=== PATIENT | female | born 1950 | race Caucasian/White ===

== ENCOUNTER 2017-03-19 08:39 | Emergency (ER) | payer BC, MEDICARE ==
[~2017-03-19] VITALS: Ht 157.5 cm; Wt 47.0 kg
[~2017-03-19 08:39] MED LIST: GLUCTAB PO; HYDR12.57 PO; LISI20 PO; METO50 PO; SIMV20TA PO
[2017-03-19 08:45] VITALS: BP 174/85; PULSE 99; RESP 16; TEMP 98.2; O2SAT 96
[2017-03-19 08:55] VITALS: BP 174/85; PULSE 99; RESP 16; TEMP 98.2; O2SAT 96
[2017-03-19] MEDS ORDERED: HYDR12.57 PO (09:01)
[2017-03-19] MEDS ORDERED: LISI-515 PO (09:01)
[2017-03-19] MEDS ORDERED: METO50TA PO (09:01)
[2017-03-19] MEDS ORDERED: SIMV20TA PO (09:01)
[2017-03-19] MEDS ORDERED: METF500T PO (09:01)
--- NOTE | 2017-03-19 09:34 | PD ---
HPI . Back pain Chief Complaint: Back/ Neck Pain or Injury Time Seen by Provider: 09:10 Travel History International Travel<30 days: No Contact w/Intl Traveler<30days: No Traveled to known affect area: No History of Present Illness HPI Patient presents with a chief complaint of back pain. She points to her right buttock. She states she fell approximately 2 feet off of a ladder right buttock approximately a week ago. She states that she has continued to have an achy pain in the right buttock which she rates 9/10. She states that her pain is improved with ibuprofen and heat and a topical analgesic. She states that she discussed her UA with her primary care physician who ordered an outpatient x -ray. That was to be done today. However, she canceled the appointment for the outpatient x-ray and came here instead stating that she just can't wait another 2 or 3 days to find out what's going on with her back. She was concerned that there would be a delay from the time that the x-ray was done until the time that the results were known and treatment was initiated. She states that there is no radiation of the pain. She does not have any concerning neurological symptoms such as leg weakness or incontinence. The pain is localized to the right buttock. PFSH Past Medical History High Cholesterol: Yes Diabetes: Yes Patient Takes Glucophage: Yes Diminished Hearing: No GERD: Yes Hypertension: Yes Tetanus Vaccination: Unknown ?: Not Menopausal: Yes Social History Alcohol Use: No Tobacco Use: No Substance Use: No Allergies-Medications (Allergen,Severity, Reaction): Coded Allergies: No Known Allergies (Unverified Adverse Reaction, Unknown, 03/19/17) Reported Meds & Prescriptions Reported Meds & Active Scripts Active Reported Simvastatin 20 Mg Tab 20 Mg PO DAILY Metoprolol Tartrate 50 Mg Tab 50 Mg PO DAILY Metformin (Metformin HCl) 500 Mg Tab 500 Mg PO BIDPC Lisinopril 20 Mg Tab 20 Mg PO BID Hydrochlorothiazide 12.5 Mg Cap 12.5 Mg PO DAILY Review of Systems Except as stated in HPI: all other systems reviewed are Neg Physical Exam Narrative GENERAL: Awake and alert and in no acute distress. She is sitting in a chair reading a book. SKIN: Warm and dry. HEAD: Normocephalic/atraumatic. EYES: Pupils are equal. Extraocular movements are intact. NECK: Normal range of motion. CARDIOVASCULAR: Regular rate and rhythm. RESPIRATORY: Nonlabored respirations. MUSCULOSKELETAL: Mild tenderness to palpation in the right buttock area. She is able to ambulate without difficulty. No tenderness to the lumbosacral spine. NEUROLOGICAL: Nonfocal. PSYCHIATRIC: Appropriate mood and affect. Data Data Last Documented VS Vital Signs Date Time Temp Pulse Resp B/P (MAP) Pulse Ox O2 Delivery O2 Flow Rate FiO2 03/19/17 08:55 98.2 99 16 174/85 (114) 96 03/19/17 08:45 Room Air Orders Orders Hip, Uni(Ap&Lat) W Ap Pelvis (03/19/17 09:13) MDM Medical Decision Making Medical Screen Exam Complete: Yes Emergency Medical Condition: Yes Differential Diagnosis Differential diagnosis of extremity trauma includes but is not limited to fracture, sprain or strain, dislocation, contusion Narrative Course This patient presents with right buttock pain after falling and landing on her right buttock about a week ago. She fell from a height of about 2 feet onto concrete ground. Her exam is reassuring. She is ambulatory without difficulty. Last Impressions Hip and Pelvis X-Ray 03/19/17912 Signed Impressions: Service Date/Time: Sunday, March 19, 2017 09:25 - CONCLUSION: Negative for fracture or dislocation. Follow up in 7-10 days is suggested if symptoms persist.. Genaro Carballo MD FACR The x-ray was independently viewed by me. Diagnosis Primary Impression: Contusion, buttock Qualified Codes: S30.0XXA - Contusion of lower back and pelvis, initial encounter Patient Instructions: Contusion in Adults (DC), General Instructions Additional Instructions: Ice/cool compresses are usually helpful for pain Med/Other Pt SpecificInfo: Prescription(s) given Scripts Acetaminophen-Codeine (Tylenol-Codeine #3) 300-30 mg Tab 1 TAB PO Q4H Y for PAIN, #12 TAB 0 Refills Prov: Sujey Chaney MD 03/19/17 Disposition: 01 DISCHARGE HOME Condition: Stable Sujey Chaney MD Mar 19, 2017 09:34
--- NOTE | 2017-03-19 09:53 | RADRPT ---
EXAM DATE/TIME: 03/19/2017 09:25 [facility] COMPARISON: No previous studies available for comparison. INDICATIONS : Right hip pain post fall 2 weeks ago. MEDICAL HISTORY : Hypercholesterolemia. Hypertension Gastroesophageal reflux disease. Diabetic. SURGICAL HISTORY : None. ENCOUNTER: Initial ACUITY: 2 weeks PAIN SCORE: 9/10 LOCATION: Right hip FINDINGS: Examination of the right hip was performed with AP Pelvis. The primary and secondary trabecular mirna janine of the femoral neck is intact. The hip joint is of normal width without significant sclerosis or bony hypertrophy. The acetabulum is grossly intact. CONCLUSION: Negative for fracture or dislocation. Follow up in 7-10 days is suggested if symptoms persist.. Genaro Carballo MD FACR on March 19, 2017 at 9:50 Board Certified Radiologist. This report was verified electronically.
[2017-03-19] MEDS ORDERED: TYLETAB34 PO (10:01)
== END 2017-03-19 10:24 | disposition home or self-care (01) ==
LOC: PHEFT 08:39
DX: S30.0XXA Contusion of lower back and pelvis, initial encounter (principal); E78.00 Pure hypercholesterolemia, unspecified; E11.9 Type 2 diabetes mellitus without complications; I10 Essential (primary) hypertension; K21.9 Gastro-esophageal reflux disease without esophagitis; Z79.84 Long term (current) use of oral hypoglycemic drugs; W11.XXXA Fall on and from ladder, initial encounter
CPT/HCPCS: 73502; 99283

== ENCOUNTER 2017-03-25 19:09 | Emergency (ER) | payer MEDICARE ==
[~2017-03-25] VITALS: Ht 157.5 cm; Wt 44.6 kg
[~2017-03-25 19:09] MED LIST changes: -GLUCTAB PO; +LISI-515 PO; -LISI20 PO; +METF500T PO; -METO50 PO; +METO50TA PO; +TYLETAB34 PO
[2017-03-25 19:31] VITALS: BP 147/71; PULSE 106; RESP 16; TEMP 97.5; O2SAT 96
[2017-03-25] MEDS ORDERED: ACETAMINOPHEN/CODEINE 300 MG/30 MG TAB PO ONE (20:00)
--- NOTE | 2017-03-25 20:27 | RADRPT ---
EXAM DATE/TIME: 03/25/2017 20:02 [facility] COMPARISON: No previous studies available for comparison. INDICATIONS : Trauma. Bilateral hip and buttocks pain post fall. ORAL CONTRAST: No oral contrast ingested. RADIATION DOSE: 6.41 CTDIvol (mGy) MEDICAL HISTORY : None SURGICAL HISTORY : None. ENCOUNTER: Subsequent ACUITY: 3 weeks PAIN SCALE: 10/10 LOCATION: Bilateral pelvis TECHNIQUE: Volumetric scanning of the pelvis was performed. Using automated exposure control and adjustment of the mA and/or kV according to patient size, radiation dose was kept as low as reasonably achievable t o obtain optimal diagnostic quality images. DICOM format image data is available electronically for review and comparison. FINDINGS: Acute, comminuted but essentially nondisplaced fractures are seen of both sacroiliac. No associated f oraminal stenosis. No significant step off or incongruity seen of the sacroiliac joints. I believe th ere are underlying old bilateral sacral insufficiency fractures as well. Bony pelvis is intact and has normal morphology. No fracture or subluxation of either hip. 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 Pelvic cavity structures are within normal limits. No hematoma demonstrated. CONCLUSION: Comminuted, acute nondisplaced fractures of both sacral ala. Krishna Carmona MD on March 25, 2017 at 20:21 Board Certified Radiologist. This report was verified electronically.
--- NOTE | 2017-03-25 20:49 | PD ---
HPI Chief Complaint: Pain: Acute or Chronic Time Seen by Provider: 19:44 Travel History International Travel<30 days: No Contact w/Intl Traveler<30days: No Traveled to known affect area: No History of Present Illness HPI 66-year-old female presents to emergency department complaining of persistent left and right hip pain after fall that occurred about 10 days ago. Patient states that she was seen here, had x-rays, and was cleared of fractures but she states that her pain is worsening over the last couple days. States that she has been using a wheelchair and has "graduated" to crutches but continues to have severe pain in the buttocks and hips. Denies lower back pain. Denies any other falls site from last visit. Denies numbness or tingling of the extremities. Denies the sensation of crepitus. Denies weakness. States she has a history of diabetes, high blood pressure, hyperlipidemia. PFSH Past Medical History High Cholesterol: Yes Diabetes: Yes Patient Takes Glucophage: Yes ([phone]) Diminished Hearing: No GERD: Yes Hypertension: Yes Immunizations Current: Yes Tetanus Vaccination: Unknown Influenza Vaccination: Yes ?: Not Menopausal: Yes Past Surgical History Surgical History: No Previous Surgery Social History Alcohol Use: No Tobacco Use: No Substance Use: No Allergies-Medications (Allergen,Severity, Reaction): Coded Allergies: No Known Allergies (Unverified Adverse Reaction, Unknown, 03/25/17) Reported Meds & Prescriptions Reported Meds & Active Scripts Active Walker/Adult/Folding (Device) 1 Mis Mis Ea .ROUTE DIRECTED PRN Hydrocodone-Acetaminophen 5-325 mg Tab 1 Tab PO TID PRN 5 Days Reported Simvastatin 20 Mg Tab 20 Mg PO DAILY Metoprolol Tartrate 50 Mg Tab 25 Mg PO DAILY Metformin (Metformin HCl) 500 Mg Tab 500 Mg PO BIDPC Lisinopril 20 Mg Tab 20 Mg PO BID Hydrochlorothiazide 12.5 Mg Cap 12.5 Mg PO DAILY Review of Systems Except as stated in HPI: all other systems reviewed are Neg Physical Exam Narrative GENERAL: Well-developed well-nourished in no distress SKIN: Focused skin assessment warm/dry. HEAD: Atraumatic. Normocephalic. EYES: Pupils equal and round. No scleral icterus. No injection or drainage. ENT: No nasal bleeding or discharge. Mucous membranes pink and moist. NECK: Trachea midline. No JVD. CARDIOVASCULAR: Regular rate and rhythm. No murmur appreciated. RESPIRATORY: No accessory muscle use. Clear to auscultation. Breath sounds equal bilaterally. GASTROINTESTINAL: Abdomen soft, non-tender, nondistended. Hepatic and splenic margins not palpable. MUSCULOSKELETAL: No obvious deformities. No clubbing. No cyanosis. No edema. Bilateral hips-full range of motion of the hips, knees, and ankles. No obvious crepitus. Mild TTP to the lower sacrum. No deformities or ecchymosis. NEUROLOGICAL: Awake and alert. No obvious cranial nerve deficits. Motor grossly within normal limits. Normal speech. PSYCHIATRIC: Appropriate mood and affect; insight and judgment normal. Data Data Last Documented VS Vital Signs Date Time Temp Pulse Resp B/P (MAP) Pulse Ox O2 Delivery O2 Flow Rate FiO2 03/25/17 21:43 03/25/17 19:31 97.5 [address] Pelvis W/O Iv Contrast (03/25/17 ) Acetamin-Codeine 300-30 Mg (Tylenol-Code (03/25/17 20:00) MDM Medical Decision Making Medical Screen Exam Complete: Yes Emergency Medical Condition: Yes Differential Diagnosis Hip fracture, sacrum fracture, sacral contusion Narrative Course 66-year-old female presents to emergency department complaining of persistent left hip and right hip pain after fall that occurred about 10 days ago. Patient states that she was seen here, had x-rays that did not show evidence of fractures, but she states that her pain is worsening over the last couple days. States that she has been using a wheelchair and has "graduated" to crutches but continues to have severe pain in the buttocks and hips. Denies lower back pain. Denies any other falls site from last visit. Denies numbness or tingling of the extremities. Denies the sensation of crepitus. Denies weakness. States she has a history of diabetes, high blood pressure, hyperlipidemia. Patient takes a baby aspirin daily. Vital signs stable Patient says that she fell down 2 steps landing on her right hip. Patient was evaluated previously and found no obvious fractures. Because of the continued and persistent pain, CT of the pelvis was ordered to evaluate for further bony abnormalities. Last Impressions Pelvis CT 03/25/17 0000 Signed Impressions: Service Date/Time: Saturday, March 25, 2017 20:02 - CONCLUSION: Comminuted , acute nondisplaced fractures of both sacral ala. Krishna Carmona MD Patient administered Tylenol 3 the emergency department and pain continues to be 8/10. After further evaluation, pt states her pain is 5/10 and would like to go home. Ortho consult placed with Dr. Rosenberg. He suggested a walker and follow up in 2 weeks. Pt and understand the importance of follow up with ortho. State understanding and will comply. Pain medication prescribed. Strongly advised she use stool softeners with this medication as they may cause constipation. Physician Communication Physician Communication Spoke with Dr. Mcallister, and he stated that she should receive a walker and be weightbearing as tolerated. Advised the patient call his office for an appointment approximately 2 weeks. Diagnosis Primary Impression: Fracture Referrals: Donell Rosenberg MD Primary Care Physician Additional Instructions: Use ice or heat for symptom relief. If symptoms persist or worsen, return to the emergency department. Follow up with your primary care physician within [address] Mcallister's office tomorrow for an appointment. Use the walker as tolerated. Weightbearing as tolerated. Use caution when taking her medication as they may cause constipation and drowsiness. Injury you have plenty of fluid intake and use stool softeners with the pain medication. Scripts Walker/Adult/Folding (Walker/Adult/Folding) 1 Mis Mis EA .ROUTE DIRECTED Y for PAIN SCALE 1 TO 2, #1 0 Refills Prov: Erica Grimaldo DO 03/25/17 Hydrocodone-Acetaminophen (Hydrocodone-Acetaminophen) 5-325 mg Tab 1 TAB PO TID Y for PAIN for 5 Days, TAB 0 Refills Prov: Erica Grimaldo DO 03/25/17 Disposition: 01 DISCHARGE HOME Condition: Stable Saadia Cortez Mar 25, 2017 20:48
[2017-03-25] MEDS ORDERED: HYDR-3516 PO (21:33)
[2017-03-25] MEDS ORDERED: WALKER/ADULT/FO1 MIS (21:46)
== END 2017-03-25 21:51 | disposition home or self-care (01) ==
LOC: PHEFT 19:09
DX: S32.19XD Other fracture of sacrum, subsequent encounter for fracture with routine healing (principal); E11.9 Type 2 diabetes mellitus without complications; E78.00 Pure hypercholesterolemia, unspecified; K21.9 Gastro-esophageal reflux disease without esophagitis; I10 Essential (primary) hypertension; W19.XXXD Unspecified fall, subsequent encounter; Z79.899 Other long term (current) drug therapy
CPT/HCPCS: 72192; 99284